=== PATIENT | female | born 1970 | race Caucasian/White ===

== ENCOUNTER 2017-05-14 15:46 | Emergency (ER) | payer OTHER ==
[~2017-05-14] VITALS: Ht 160 cm; Wt 82.9 kg
[~2017-05-14 15:46] MED LIST: BUPROPION XL300 MG PO; COLACE100 MG PO; CYMBALTA60 MG PO; DIFLUCAN150 MG PO; ENDOCET 5-3251 EACH PO; Ecotrin PO; FERREX 150 FOR1 EACH PO; FLOMAX0.4 MG PO; GLUCOPHAGE1000 MG PO; Glucophage PO; KEFLEX500 MG PO; LORAZEPAM0.5 MG PO; METFORMIN HCL500 M1 PO; MOTRIN600 MG PO; OXYCODONE-ACET1 EACH PO; PERCOCET 5/31 TABLET PO; PROMETHAZINE HC25 M1 PO; Wellbutrin XL PO; ZOFRAN4 MG PO
[2017-05-14 17:18] LABS: HEMATOCRIT 37.1 % (36.0-46.0); HEMOGLOBIN 12.1 G/DL (11.9-15.5); MCH 27.5 PG (29.0-34.0); MCHC 32.6 G/DL (30.0-36.0); MCV 84.3 FL (83-99); PLATELET COUNT 280 K/uL (156-360); RBC DIS.WIDTH-CV 13.9 % (11.8-14.6); RBC DIS.WIDTH-SD 43.2 % (39-53)
[2017-05-14 17:29] LABS: CHLORIDE 106 mEq/L (99-109); SODIUM 136 mEq/L (136-147)
[2017-05-14 17:31] LABS: GLUCOSE 97 mg/dL (70-99)
[2017-05-14 17:35] LABS: CREATININE 0.8 mg/dL (0.6-1.3); GFR ESTIMATE (CALCULATED) > 59 mL/min/
[2017-05-14 17:36] LABS: UREA NITROGEN (BUN) 15 mg/dL (9-23)
[2017-05-14 17:52] LABS: TROP-I INTERPRETATION NEGATIVE; TROPONIN-I < 0.01 ng/mL (0.0-0.30)
[2017-05-14] MEDS ORDERED: ZITHROMAX250 MG PO (18:08)
[2017-05-14 18:14] VITALS: BP 127/77
== END 2017-05-14 18:14 | disposition home or self-care (01) ==
LOC: EME 15:46
PROVIDERS: Nurse Practitioner Family
DX: J40 Bronchitis, not specified as acute or chronic (principal); J06.9 Acute upper respiratory infection, unspecified; R00.0 Tachycardia, unspecified; Z90.13 Acquired absence of bilateral breasts and nipples; E11.9 Type 2 diabetes mellitus without complications; Z79.84 Long term (current) use of oral hypoglycemic drugs
CPT/HCPCS: 71046; 80048; 84484; 85027; 93005; 99281; 99283